=== PATIENT | female | born 1945 | race Asian ===

== ENCOUNTER 2017-03-13 13:52 | Outpatient (CLI) | payer OTHER ==
[~2017-03-13 13:52] MED LIST: CETI10TA PO; DICL1GEL2 TOP; OSTEO BI-FLX1 TAB OR; RANI150T78 PO
[2017-03-13 15:03] LABS: PLATELET COUNT 184 K/uL (152-353)
[2017-03-13 15:31] LABS: POTASSIUM 4.5 mmol/L (3.6-5.2); SODIUM 139 mmol/L (136-145)
== END 2017-03-13 19:05 | disposition home or self-care (01) ==
LOC: LAB 13:52
PROVIDERS: Nurse Practitioner Family
DX: M81.0 Age-related osteoporosis without current pathological fracture (principal); Z85.41 Personal history of malignant neoplasm of cervix uteri; Z85.528 Personal history of other malignant neoplasm of kidney; K21.9 Gastro-esophageal reflux disease without esophagitis; M19.90 Unspecified osteoarthritis, unspecified site; Z00.00 Encounter for general adult medical examination without abnormal findings; R53.83 Other fatigue; R53.81 Other malaise
CPT/HCPCS: 80053; 80061; 83036; 84436; 84443; 85027

== ENCOUNTER 2018-10-31 12:27 | Outpatient (CLI) | payer OTHER ==
[2018-10-31 12:46] LABS: PLATELET COUNT 175 K/uL (152-353)
[2018-10-31 12:55] LABS: POTASSIUM 3.8 mmol/L (3.6-5.2)
== END 2018-10-31 23:47 | disposition home or self-care (01) ==
LOC: LABW 12:27
PROVIDERS: Nurse Practitioner Family
DX: L03.818 Cellulitis of other sites (principal); N61.0 Mastitis without abscess; R42 Dizziness and giddiness
CPT/HCPCS: 36415; 80053; 85027

== ENCOUNTER 2019-04-25 12:28 | Emergency (ER) | payer OTHER ==
[~2019-04-25] VITALS: Ht 167.6 cm; Wt 67.1 kg
[2019-04-25 13:01] VITALS: BP 188/88; TEMP 97.5
[2019-04-25 13:40] LABS: PLATELET COUNT 179 K/uL (152-353)
[2019-04-25 13:45] LABS: POTASSIUM 4.3 mmol/L (3.6-5.2); SODIUM 142 mmol/L (136-145)
== END 2019-04-25 18:07 | disposition home or self-care (01) ==
LOC: ED 12:28
PROVIDERS: Family Medicine
DX: R07.89 Other chest pain (principal); K21.9 Gastro-esophageal reflux disease without esophagitis
CPT/HCPCS: 80053; 82550; 84484; 85027; 99284

== ENCOUNTER 2020-12-08 14:47 | Outpatient (CLI) | payer OTHER, MEDICARE | END 2020-12-08 21:17 | disposition home or self-care (01) | LOC: RAD 14:47 | PROVIDERS: ATTEND Internal Medicine Hematology & Oncology | DX: C50.511 Malignant neoplasm of lower-outer quadrant of right female breast (principal); Z17.0 Estrogen receptor positive status [ER+]; N95.8 Other specified menopausal and perimenopausal disorders ==